=== PATIENT | female | born 1945 | race Caucasian/White ===

== ENCOUNTER 2022-01-14 17:05 | Emergency (ER) | payer MEDICARE, SELFPAY ==
[2022-01-14 17:07] VITALS: BP 157/78; PULSE 70; RESP 16; TEMP 35.7; O2SAT 100; BMI 29.2
--- NOTE | 2022-01-14 17:30 | CT_ITS ---
STUDY: CT BRAIN WITHOUT CONTRAST REASON FOR EXAM: Female, 76 years old. trauma RADIATION DOSAGE (If Supplied By Facility): CTDIvol = ( 44.99 ) mGy, DLP = ( 829.85 ) mGycm TECHNIQUE: Transaxial CT imaging of the brain was performed without administration of intravenous contrast material. Individualized dose optimization techniques were used for this CT. COMPARISON: No relevant priors. FINDINGS: Normal soft tissue structures. Normal calvarium. There is mild cerebral atrophy with widening of the extra-axial spaces and ventricular dilatation. There are areas of decreased attenuation within the white matter tracts of the supratentorial brain, consistent with microvascular disease changes. Normal basal ganglia and thalami. Normal brainstem. Normal cerebellum. There is no intracranial hemorrhage. There are no findings of an acute ischemic infarction. Normal visualized paranasal sinuses. CT/Brain/Head without Contrast IMPRESSION: Chronic involutional changes of the brain. Electronically Signed: Quintin Myrick MD at 18:09 EDT ,
--- NOTE | 2022-01-14 17:32 | EDS_ITS ---
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 She states she tried to garbage pick up worker her 3-year-old granddaughter and lost her balance falling forward. She struck her right head and her knees. No loss of consciousness. She has superficial abrasion just above the right eyelid. She denies neck pain. She is not on anticoagulants. Tetanus Immunization: Unknown [facility] Medical History Diabetes Allergy/AdvReac Type Severity Reaction Status Date / Time lisinopril Allergy Anaphylaxis Verified 01/14/22 17:07 Social History Smoking Status: Former smoker ROS ROS ED Constitutional Constitutional ED: Denies chills or fever(s) Eyes Eyes: Denies change in vision or discharge from eye(s) ENT ENT ED: Denies discharge from eye(s), rhinorrhea or sore throat Cardiovascular Cardiovascular: Denies chest pain or palpitations Respiratory/Chest Respiratory/Chest: Denies cough or dyspnea Gastrointestinal Gastrointestinal: Denies abdominal pain, diarrhea, nausea or vomiting Genitourinary Genitourinary ED: Denies dysuria Musculoskeletal Musculoskeletal: Reports extremity pain; Denies back pain Integumentary Reports Abrasions; Denies rash Neurologic Neurologic: Denies headache(s) or weakness Allergic/Immunologic Allergic/Immunologic ED: Denies lip swelling or urticaria EXAM Physical Exam Const Vital Signs: 01/14/22 17:07 01/14/22 17:14 01/14/22 18:25 Temperature 96.3 F L Temperature Source Temporal Pulse Rate 70 65 Respiratory Rate 16 16 Respiratory Effort Normal Blood Pressure 157/78 H 150/76 H Blood Pressure Mean 104 100 Pulse Ox 100 100 Oxygen Delivery Method Room Air Room Air Positive well nourished and well developed General Appearance ED: well developed HEENT Reports normocephalic HEENT Narrative: Superficial abrasion noted just above the right eye. There is a 1 cm superficial linear laceration also noted. No active bleeding at this time. Extraocular movements are fully intact. Eyes PERRL and EOMs intact bilaterally Neck full ROM Neck Narrative: No C-spine tenderness. Chest Wall inspection of chest normal and palpation of chest normal Resp normal respiratory effort and clear to auscultation bilaterally Cardio regular rate and regular rhythm GI non-tender Extremity Extremity Narrative: Superficial abrasion noted to the anterior of each knee. No bony tenderness with good range of motion. Neuro oriented x3, CN's II-XII intact bilaterally, no focal motor deficits and no sensory deficits noted Motor Exam: strength 5/5 throughout Psych mental status grossly normal Skin Skin Narrative: As above MDM MDM MDM Narrative Medical decision making narrative: Patient given Tylenol. Tetanus update given. CT scan of the head obtained. Radiography Diagnostic Testing: Clinical Impression(s) from Imaging Studies Brain CT 01/14/22 17:30 IMPRESSION: Chronic involutional changes of the brain. Electronically Signed: Quintin Myrick MD at 18:09 EDT , Treatment and Re-Evaluation Narrative: CT the head shows chronic changes only. No acute findings from the fall today. Wounds around the right upper eye are cleansed. Superficial linear abrasion is sealed with Dermabond. Discharge Plan Triage Chief Complaint: Fall ED Provider: Marivel Novoa Dx/Rx/DC Orders Clinical Impression: Fall, Contusion of face, Facial laceration Instructions: ED Facial Contusion, ED Head Injury (Adult), ED Laceration, Face: Skin Glue Primary Care Provider: Ashlye Thayer Referrals: NOT,DEFINED [Non-Staff] - Disposition Disposition: Home, Self Care
[2022-01-14] MEDS: Acetaminophen 325 MG Tablet 650 MG PO (17:36)
[2022-01-14] MEDS: Diphth,Pertuss(Acell),Tet Vac 0.5 ML Vial IM (17:36)
[2022-01-14 18:25] VITALS: BP 150/76; PULSE 65; RESP 16; O2SAT 100
[2022-01-14 18:54] VITALS: BP 165/87; RESP 16; O2SAT 98
== END 2022-01-14 18:56 | disposition home or self-care (01) ==
PROVIDERS: Emergency Provider Emergency Medicine; Visit Provider Emergency Medicine
DX: S01.81XA Laceration without foreign body of other part of head, initial encounter (principal); E11.9 Type 2 diabetes mellitus without complications; Z87.891 Personal history of nicotine dependence; Z23 Encounter for immunization; W22.8XXA Striking against or struck by other objects, initial encounter
CPT/HCPCS: 70450; 90471; 90715; 99283